=== PATIENT | female | born 1940 | race Caucasian/White ===

== ENCOUNTER → 2017-05-27 | Outpatient (CLI) | payer MEDICARE, BC ==
[~2017-05-27] MED LIST: 3N1 COMMODE MC; ALPR0.5T6 PO; ASPI-664 PO; ASPI325T32 PO; Aspirin PO; CPM MC; DOCU-144 PO; ESTRIOL; EZET10TA3 PO; FEXO60TA20 PO; HYDR-3720 PO; LEVO125T75 PO; OLOP2.5D BOTH EYES; TRAM50TA2 PO; VALA500T32 PO; WALK1EAC23 MC
--- NOTE | 2017-05-27 14:06 | RADRPT ---
PROCEDURE: Left knee radiographs. CLINICAL INDICATION: Left knee pain. Postop. TECHNIQUE: Three views. Weight bearing. Frontal, lateral, and patellar view. COMPARISON: 05/19/2016. FINDINGS: There is no fracture or dislocation. There is a small joint effusion. Vascular calcifications are present consistent with atherosclerosis . 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 There is no lytic or blastic lesion. IMPRESSION: 1. Small joint effusion. 2. Atherosclerosis. 3. Otherwise unremarkable postoperative appearance of the left knee. RPTAT: QQ .Aba Tran MD, MD Date Time Electronically viewed and signed by .Aba Tran MD, MD on 05/27/2017 14:05 .R/
== END | disposition home or self-care (01) ==
LOC: HKI 08:14
PROVIDERS: ATTEND Orthopaedic Surgery
DX: M25.562 Pain in left knee (principal); Z47.1 Aftercare following joint replacement surgery; Z96.652 Presence of left artificial knee joint
CPT/HCPCS: 73562; G0463